=== PATIENT | male | born 1985 ===

== ENCOUNTER → 2017-02-26 10:37 | Day surgery (SDC) | payer OTHER ==
[~2017-02-26 10:37] MED LIST: Buffered Lidocaine 1% SYRIN* 3 ML/SYR SYRINGE INTRADERM ONE; Bupivacaine 0.5% SDV PF* 30 ML VIAL ONE; Chloroprocaine 2%* 20 ML VIAL ONE; Dexamethasone IV* 4 MG/ML 1 ML (4 MG) IV SLOW PU ONE; Dexamethasone IV* 4 MG/ML 1 ML (4 MG) ONE; Famotidine IV* 10 MG/ML 2 ML (20 mg) IV ONE; Famotidine IV* 10 MG/ML 2 ML (20 mg) ONE; Midazolam* 1 MG/ML 2 ML VIAL (2 MG) ONE; Midazolam* 1 MG/ML 5 ML VIAL (5 MG) ONE; Ondansetron INJ* 2 MG/ML VIAL ONE; PROCHLORPERAZINE INJ 5 MG/ML 2 ML VIAL IV PRN; Succinylcholine* 20 MG/ML 10 ML VIAL ONE; ceFAZolin 1 GM in Dextrose (*) 1 GM/50 ML BAG IVPB ONE; ceFAZolin 2 GM PREMIX(*) 2 GM/50 ML BAG IVPB ONE; fentaNYL* 50 MCG/ML 2 ML VIAL (100 MCG VIAL) IV PRN; fentaNYL* 50 MCG/ML 2 ML VIAL (100 MCG VIAL) ONE; oxyCODONE/Acetamin 5/325 MG* TAB ONE
[2017-02-26] MEDS: oxyCODONE/Acetamin 5/325 MG* TAB PO PRN ×2 (14:00→15:57)
[2017-02-26 15:57] VITALS: BP 104/76
--- NOTE | 2017-02-27 09:30 | OP ---
DATE OF OPERATION: 02/26/17 - [facility] DATE OF : 81 SURGEON: John Kramer MD MONEY POSITION OFFICER: BOUBACAR Quinones ANESTHESIOLOGIST: Lianna Mckeon MD ANESTHESIA: Spinal PRE-OP DIAGNOSIS: Right ankle instability. POST-OP DIAGNOSIS: Right ankle instability. OPERATIVE PROCEDURE: Right modified ankle ligament repair. DESCRIPTION OF PROCEDURE: The patient was taken to the operating room, lateral positioning used. We made a longitudinal incision over the distal fibula. The patient was noted to have a very thickened, hypertrophic capsule in this area. We incised directly through it along the anterior border of the fibula and sent some of the hypertrophic synovium for pathology. The joint cartilage looked pristine. Because of the thickened capsule, we elected to do a modified Brostrom. We reflected the periosteum posteriorly and then made a 0.062 C-wire drill holes back to front through the fibula. We scarified the anterior aspect of the fibula with a Rongeur. We then used Hay-Mu sutures of #1 Vicryl to fully capsule up firmly to the anterior fibula. Excellent purchase and capsular advancement was obtained. We then brought the redundant periosteum down over the repair with 2-0 Vicryl. Subcutaneous closure and then ally for the skin with a compression dressing plaster splint. [id number]/[facility] #: [id number] [facility]
== END | disposition home or self-care (01) ==
LOC: OR 10:37
PROVIDERS: ATTEND Orthopaedic Surgery
DX: S93.401A Sprain of unspecified ligament of right ankle, initial encounter (principal); W11.XXXA Fall on and from ladder, initial encounter; Y92.9 Unspecified place or not applicable; Y99.0 Civilian activity done for income or pay
CPT/HCPCS: 88305; A9270-GY; C1776; J0330; J0690; J1100; J2250; J2400; J2405; J3010

== ENCOUNTER 2018-04-03 15:25 | Inpatient (IN) | payer BC, OTHER ==
[2018-04-03] MEDS ORDERED: Morphine VIAL* 4 MG/ML VIAL (1 ml vial) IV ONE ×2 (15:49→17:02)
[2018-04-03] MEDS ORDERED: Metoclopramide IV* 5 MG/ML 2 ML VIAL IV ONE (15:49)
[2018-04-03] MEDS ORDERED: NS 0.9% 1000 ML* 1,000 ML IV ONE (15:50)
[2018-04-03 16:13] LABS: ABS Basophils 0.1 10^3/ul (0-0.2); ABS Eosinophils 0.1 10^3/ul (0-0.6); ABS Lymphocytes 1.7 10^3/ul (1.0-4.8); ABS Monocytes 0.7 10^3/ul (0-0.8); ABS Neutrophils 8.9 10^3/ul (1.5-7.7); ABS Nucleated RBC 0 10^3/ul; Hematocrit 42 % (42-52); Hemoglobin 13.8 g/dl (14.0-18.0); Lymphocyte % 14.5 % (25-47); Mean Corpuscular HGB Conc 33 g/dl (31-36); Mean Corpuscular Hemoglobin 30 pg (27-31); Mean Corpuscular Volume 90 fL (80-94); Mean Platelet Volume 8.5 um3 (7.4-10.4); Nucleated Red Blood Cells % 0.1; Platelet Count 219 10^3/ul (150-450); Red Blood Count 4.62 10^6/ul (4.0-5.4); Red Cell Distribution Width 14 % (10.5-15); White Blood Count 11.5 10^3/ul (3.5-10.8)
[2018-04-03 16:18] LABS: INR 0.98 (0.77-1.02)
[2018-04-03 16:32] LABS: EGFR Non-African American 73.5 (>60)
--- NOTE | 2018-04-03 16:40 | ED ---
Upper Extremity Pain - HPI Summary HPI Summary: Rt hand dominant patient here with left wrist fracture today. He reports he was standing at the top of an 8 foot ladder (he's 6'4") when the ladder gave out and he fell at about 1045 this morning. He recalls all of the events and states he landed primarily on his left hand/wrist area. Scraped the right side of his flank against the ladder and has a abrasion here as well. Denies any head injury, chest or back injury and did not land on his feet or lower extremities - denies back pain, chest pain, SOB, hematuria, incontinence of bowels/bladder. He has a bloody oozing wound over the ventral aspect of his left wrist along with swelling and pain which is 7 out of 10 despite 15 mg of Toradol prior to arrival - he was evaluated at [place] urgent care and splint placed/medicated prior to coming here. He also received a Boostrix vaccine while in [place]. Denies numbness, tingling, weakness of his phalanges. No previous injury here to report. Last drink was soda at about 10:30 this morning. Last meal was a granola bar at 9 AM this morning. Has sleep apnea Had surgery on his RT ankle here at [facility] in 02/2017 w/ Dr. Kramer - no issues with anesthesia No other medical issues to report - History of Current Complaint Chief Complaint: EDExtremityUpper Stated Complaint: WRIST FRACTURE Time Seen by Provider: 04/03/18 15:49 Hx Obtained From: Patient - Allergies/Home Medications Allergies/Adverse Reactions: Allergies Allergy/AdvReac Type Severity Reaction Status Date / Time No Known Allergies Allergy Verified 02/26/17 11:00 PMH/Surg Hx/FS Hx/Imm Hx Previously Healthy: Yes Endocrine/Hematology History: Denies: Hx Anticoagulant Therapy, Hx Blood Disorders, Hx Diabetes, Hx Anemia , Hx Unexplained Bleeding, Autoimmune Disease Cardiovascular History: Denies: Hx Hypertension Respiratory History: Reports: Hx Sleep Apnea Denies: Hx Asthma, Hx Chronic Obstructive Pulmonary Disease (COPD) Musculoskeletal History: Reports: Hx Orthopedic Injury - Rt ankle instability - surgery to repair Sensory History: Denies: Hx Contacts or Glasses, Hx Hearing Aid Opthamlomology History: Denies: Hx Contacts or Glasses - Surgical History Surgery Procedure, Year, and Place: TESTICULAR TORSION REPAIR A CHILD, [facility] Hx Anesthesia Reactions: No - Immunization History Immunizations Up to Date: Yes - recevied Boostrix prior to arrival Infectious Disease History: No Infectious Disease History: Denies: Hx of Known/Suspected MRSA, Traveled Outside the [place] in Last 30 Days - Family History Known Family History: Positive: None - Social History Occupation: Employed Full-time Lives: With Family Alcohol Use: Occasionally Hx Substance Use: No Substance Use Type: Reports: None Hx Tobacco Use: No - not currently Smoking Status (MU): Former Smoker Type: Cigarettes Amount Used/How Often: 1.5 PPD FOR ABOUT 15 YEARS Length of Time of Smoking/Using Tobacco: 15 YEARS Have You Smoked in the Last Year: No Review of Systems Negative: Fatigue Negative: Chest Pain Negative: Shortness Of Breath Gastrointestinal: Negative Negative: Abdominal Pain, Vomiting, Nausea Negative: incontinence Positive: Arthralgia, Myalgia, Decreased ROM, Edema Skin: Other - lac of skin Rt wrist Neurological: Negative Psychological: Normal All Other Systems Reviewed And Are Negative: Yes Physical Exam Triage Information Reviewed: Yes Vital Signs On Initial Exam: Initial Vitals Temp Pulse Resp BP Pulse Ox 97.2 F 77 16 151/89 96 04/03/18 15:28 04/03/18 15:28 04/03/18 15:28 04/03/18 15:28 04/03/18 15:28 Vital Signs Reviewed: Yes Appearance: Positive: Pain Distress, Obese Skin: Positive: Warm, Skin Color Reflects Adequate Perfusion - Ventral radial aspect of left wrist with 3 mm bloody oozing wound - difficult to tell if this was externally inflicted or internal; superficial linear abrasion along right mid axillary region - scabbed, no active bleeding, no ecchymosis, no edema, nontender to palpation Head/Face: Positive: Normal Head/Face Inspection Eyes: Positive: Normal, EOMI, JAZMIN ENT: Positive: Normal ENT inspection, Hearing grossly normal, Pharynx normal Neck: Positive: Supple, Nontender - Full range of motion without pain or restriction Respiratory/Lung Sounds: Positive: Clear to Auscultation, Breath Sounds Present. Negative: Other - Ribs are nontender to palpation patient does not splint with deep breath Cardiovascular: Positive: Normal, Pulses are Symmetrical in both Upper and Lower Extremities Abdomen Description: Positive: Nontender, No Organomegaly, Soft Musculoskeletal: Positive: Strength/ROM Intact - Cervical spine, shoulders, elbows, phalanges of bilateral hands (moves left phalanges well splinted); full range of motion lumbar spine and lower extremities without pain or restriction; patient can bear weight without pain or weakness, Pain @ - Left wrist edematous - guards from movement secondary to pain Neurological: Positive: Normal, Sensory/Motor Intact, Alert, Oriented to Person Place, Time, CN Intact II-III Psychiatric: Positive: Normal Diagnostics - Vital Signs Vital Signs Temp Pulse Resp BP Pulse Ox 04/03/18 15:36 97.4 F 76 20 120/79 96 04/03/18 15:28 97.2 F 77 16 151/89 96 - Laboratory Lab Results: Lab Results 04/03/18 04/03/18 Range/Units 16:00 16:00 WBC 11.5 H (3.5-10.8) 10^3/ul RBC 4.62 (4.0-5.4) 10^6/ul Hgb 13.8 L (14.0-18.0) g/dl Hct 42 (42-52) % MCV 90 (80-94) fL MCH 30 (27-31) pg MCHC 33 (31-36) g/dl RDW 14 (10.5-15) % Plt Count 219 (150-450) 10^3/ul MPV 8.5 (7.4-10.4) um3 Neut % (Auto) 77.5 (38-83) % Lymph % (Auto) 14.5 L (25-47) % [place] % (Auto) 6.4 (0-7) % Eos % (Auto) 1.0 (0-6) % Baso % (Auto) 0.6 (0-2) % Absolute Neuts (auto) 8.9 H (1.5-7.7) 10^3/ul Absolute Lymphs (auto) 1.7 (1.0-4.8) 10^3/ul Absolute Monos (auto) 0.7 (0-0.8) 10^3/ul Absolute Eos (auto) 0.1 (0-0.6) 10^3/ul Absolute Basos (auto) 0.1 (0-0.2) 10^3/ul Absolute Nucleated RBC 0 10^3/ul Nucleated RBC % 0.1 INR (Anticoag Therapy) 0.98 (0.77-1.02) Result Diagrams: 04/03/18 16:00 04/03/18 16:00 Lab Statement: Any lab studies that have been ordered have been reviewed, and results considered in the medical decision making process. Course/Dx - Course Course Of Treatment: Patient arrives with XR images from [facility] urgent care on [address] in [facility] where he was seen prior to arrival here today. Images are of the left wrist and reveal (wet read) comminuted and slightly displaced distal radial fracture as well as fx of styloid process of ulna. He is neurovascularly intact however with possible open fracture site, Dr. Hong was called for consult. An IV was placed for pain control and patient reports his pain a 7 out of 10 reduced to 5 out of 10 with IV morphine - he feels this is a comfortable level of pain for him at this time. Assessed patient for additional injuries from fall and does not seem to be suspicious for any at this point in time, inlcuding but not limited to Rt flank hematoma, rib fx, head /neck injury. IV fluids were initiated as patient has not had anything to eat or drink since 10:30 this morning and was a little shaky upon arrival however his vitals are stable. Ancef also ordered as well as ecg, cxr and MRSA swab for pre-po prep. Dr. Trevino will admit the pt for surgery tomorrow. - Diagnoses Provider Diagnoses: Open fracture of left wrist Discharge - Sign-Out/Discharge Documenting (check all that apply): Discharge/Admit/Transfer - Discharge Plan Condition: Stable Disposition: ADMITTED TO [facility] - Billing Disposition and Condition Condition: STABLE Disposition: HOSP-[facility]
[2018-04-03] MEDS ORDERED: ceFAZolin 1 GM VIAL(*) 2 GM in NS 0.9% 100 ML* 100 ML IVPB ONE (17:01)
--- NOTE | 2018-04-03 17:51 | HP ---
H&P (Free Text) History and Physical: I will dictate an H&P in a few minutes. Synopsis: Assessment: L open distal radius fracture, comminuted intra-articular. Plan: - Admit for IV antibiotics and for operation tomorrow morning - NPO p midnight - EKG, CXR, labs for pre-op optimization/clearance - Cleaned puncture wound with Betadine. Placed Betadine-soaked 4x4s then a sugar-tong splint with plaster and a sling - Ancef 1gm IV q 8 hrs - To OR tomorrow for open, I&D, ORIF with volar plate (likely) versus ex-fix ( unlikely) - CT scan STAT L wrist to evaluate distal radius fracture fragments for pre-op planning and assess SL interval
--- NOTE | 2018-04-03 17:53 | RAD ---
Indication: Preop, sleep apnea. Single frontal view of the chest performed at 1729 hours was reviewed. No prior study is available for comparison. No mediastinal shift is noted. Heart is of normal size and configuration. Lung carrillo appear clear. IMPRESSION: NO ACTIVE CARDIOPULMONARY DISEASE IS NOTED.
[2018-04-03] MEDS ORDERED: Buffered Lidocaine 0.9% SYRIN* 5 ML/SYR SYRINGE INTRADERM ONE (18:11)
[2018-04-03] MEDS ORDERED: ceFAZolin 2 GM PREMIX (*) 2 GM/50 ML BAG IVPB ONE (18:30)
--- NOTE | 2018-04-03 18:52 | RAD ---
Indication: Left wrist injury. CT of the left wrist was obtained in the axial position. Coronal and sagittal reconstructed images were obtained. There is comminuted fracture of the distal radius with overriding of the fracture fragment. Intra-articular extension of the fracture line is noted. There is dorsal angulation of the distal fracture fragment. There is fracture of the base of the ulnar styloid process however no discrete displaced fragment is noted. The navicular appears intact without fracture. There may be some widening of the scapholunate interval. The lunate is intact. The remainder of the carpal bones are otherwise unremarkable. IMPRESSION: Comminuted fracture of the distal radius with overriding of the fracture fragments with extension into the intra-articular surface. There is a fracture through the base of the ulnar styloid process. Widening of the scapholunate interval.
[2018-04-03] MEDS ORDERED: diPHENhydraMINE IV* 50 MG/ML 1 ml VIAL (BENADRYL) IV PRN (19:18)
[2018-04-03] MEDS ORDERED: Ondansetron INJ* 2 MG/ML VIAL IV PRN (19:18)
[2018-04-03] MEDS ORDERED: NS 0.9% 1000 ML* 1,000 ML IV SCH (19:30)
[2018-04-03] MEDS: oxyCODONE/Acetamin 5/325 MG* TAB PO PRN (20:21)
--- NOTE | 2018-04-03 21:19 | HP ---
HISTORY AND PHYSICAL: DATE OF ADMISSION: 04/03/18 REASON FOR ADMISSION: Open left distal radius fracture. 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 It was noted in the [facility] and the [facility] Emergency Department that the patient had a loss of integrity of the skin about the volar wri st inconsistent with a puncture wound. The patient states that he was working, 6 feet up a ladder this morning. Specifically, his feet were at the level of 6 feet, so his hands may have been at 10 feet. The ladder collapsed and the patient fell, landing on his left wrist and right side, flank. The patient had pain, swelling and some defor mity of the left wrist. The patient did not hit his head. He did not lose consciousness. He had a little bit of discomfort about the right side of his torso, but no other pain present. The patient went to an urgent care in [place]. X-rays were obtained of the left wrist. The patient w as diagnosed with fractures of the distal radius and distal ulna. The distal radius fracture was not ed to be comminuted. The patient's mother is a PACU nurse at [facility]. The patient preferred treatment at [facility]. Staff at the [facility] contacted me by telephone, as I am on-call for [facility]. They told me about the fractur e, shared x-rays, and told me about the open nature of the fracture. I recommended transfer for admi ssion with IV antibiotics and likely surgical management. The patient was brought to the [facility] Emergen cy Department. The patient had been placed in a one-step sugar-tong splint at the [facility]. The patient acknowledges left wrist pain now. No fever, sweats, or chills. PAST MEDICAL HISTORY: None. PAST SURGICAL HISTORY: Right ankle lateral reconstruction surgery by Dr. Kramer in 2017, testicular torsion surgery in the distant past, removal of the patient's second thumb, right hand in the distant past. MEDICATIONS: None. ALLERGIES: No known drug allergies. SOCIAL HISTORY: The patient currently vapes. The patient has smoked cigarettes in the past, for 15 years, up to 1-pack per day. No smoking of cigarettes currently. The patient lives with his family 4 5 to 60 [address] from [place]. His mother, Zach, works in the PACU, recovery room, surgical at [facility]. 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 REVIEW OF SYSTEMS: Currently no headache, chest pain, shortness of breath, heart palpitations. The patient acknowledges a little bit of discomfort about the right side and pain about the left wrist. No numbness or tingling of left upper extremities. No pain in the left shoulder or elbow. PHYSICAL EXAMINATION GENERAL: No acute distress. Alert and oriented, appropriate mood and affect, appropriate dress and hygiene for doing some manual labor today. VITAL SIGNS: Temperature 97.4 degrees Fahrenheit at 3:36 p.m. Also, at that time, the patient had p ulse 76, blood pressure 120/79, respiratory rate 20, and O2 saturation 96% on room air. HEENT: Normocephalic, atraumatic. NECK: No tenderness with palpation of the neck, midline and paraspinal. No pain with passive range of motion of the left shoulder or elbow. EXTREMITIES: The patent has tenderness to palpation and mild soft tissue swelling about the left wri st. Tenderness to palpation at the distal radius and ulna. Neurovascularly intact distally. The pat ient has some abrasion, linear, partial thickness skin about the lateral aspect, right of the torso, mid sagittal line more abdominal than at the level of the chest. No tenderness to palpation of the h eels or pain with passive range of motion at the ankles. Examination of the patient's left wrist rev ealed a very small defect in skin, slightly jagged in shape. In length, it appeared 5 mm or less. I t was already filled over and not draining. It had clotted off with blood. Palpation about it faile d to express any fluid. (By report, there was drainage when at urgent care, consistent with a punctu re wound from the inside out). LABORATORY DATA: White blood cell count 11.5. INR 0.98. Chemistries demonstrate glucose 104. IMAGING: X-ray views of the left wrist obtained at the [facility] and incorporated into our system reveal a left distal radius fracture, comminuted, displaced. There is a transverse fracture l ine extraarticular. It appears there is also a possible fracture line in the coronal plane. There i s a fracture fragment on the ulnar most aspect of the distal radius. Predominant displacement is matthew regla of everything distal to the transverse fracture line. There is a nondisplaced fracture of the ulnar styloid process. There is some question of some mild diastasis at the scapholunate interval. ASSESSMENT: Left open distal radius and ulna fractures, displaced, intra- articular. PLAN: 1. I examined the patient at several minutes after 5 p.m. I considered surgery this evening; lebron sanabria, this would mean an approximate start time of 7 p.m. I thought that it would better serve the kathy ent to have a fresh operating room and operating room staff first thing in the morning. Therefore, I decided 8:30 a.m. tomorrow morning for surgery. This is still within 24 hours of the patient's open fracture. He has a grade 1 open fracture with only several millimeters, 1 cm or less clearly less t mcfarland 1 cm in size without gross contamination. More recent studies have shown that the timing of IV a ntibiotics are more important than the exact timing of surgery to minimize the risk of infection. 2. The patient was started on Ancef 1 g IV q.8 hours. He will also be swabbed for MRSA. If he is p ositive, we will cover him by changing the antibiotics, IV. 3. I cleaned the patient's wound with Betadine. I then placed a Betadine soaked 4x4 and then severa l dry 4x4s over the patient's wound. I then placed a short arm splint specifically a sugar-tong fore arm splint with plaster. I next provided him with a sling. 4. The patient will be admitted. He will be admitted to [place]. The reason for admission will be IV an tibiotics, preoperative optimization, CT scan, pain control and operation tomorrow morning. 5. N.p.o. past midnight. 6. The patient will have an EKG and chest x-ray for preoperative optimization and clearance. 7. The patient will have a CT scan stat of the left wrist to evaluate the different fracture fragmen ts of the distal radius. It makes sense to get this as the patient is admitted. This will help with preoperative planning. The CT scan will also provide some information about the scapholunate injury , if any of that ligament. 8. To the operating room tomorrow morning for open incision, irrigation and debridement at the open puncture site, open reduction internal fixation versus external fixation closed reduction of the kathy ent's distal radius fracture. [id number]/[facility] #: [id number]
[2018-04-03] MEDS: Heparin VIAL(*) 5000 UNITS/ML VIAL (FIVE THOUSAND) SUBCUT SCH (22:38)
[2018-04-04] MEDS: Heparin VIAL(*) 5000 UNITS/ML VIAL (FIVE THOUSAND) SUBCUT SCH ×2 (05:46→15:22)
[2018-04-04] MEDS ORDERED: Famotidine IV* 10 MG/ML 2 ML (20 mg) IV ONE (07:00)
[2018-04-04] MEDS ORDERED: Dexamethasone IV* 4 MG/ML 1 ML (4 MG) IV SLOW PU ONE (07:00)
[2018-04-04] MEDS: Morphine VIAL* 4 MG/ML VIAL (1 ml vial) IV PRN (07:16)
[2018-04-04] MEDS ORDERED: fentaNYL* 50 MCG/ML 5 ML VIAL (250 MCG VIAL) ONE (08:22)
[2018-04-04] MEDS ORDERED: Midazolam* 1 MG/ML 5 ML VIAL (5 MG) ONE (08:22)
[2018-04-04] MEDS ORDERED: ceFAZolin 2 GM PREMIX (*) 2 GM/50 ML BAG IVPB ONE (08:22)
[2018-04-04] MEDS ORDERED: Propofol* 10 MG/ML 20 ML BTL IV PUSH ONE (08:23)
[2018-04-04] MEDS ORDERED: Succinylcholine* 20 MG/ML 10 ML VIAL ONE (08:23)
[2018-04-04] MEDS ORDERED: Lidocaine 2% PF * 5 ML VIAL ONE (08:23)
[2018-04-04] MEDS ORDERED: ROPIVACAINE 5 MG/ML 30 ML BTL (0.5%) ONE (08:29)
[2018-04-04] MEDS ORDERED: Phenylephrine INJ* 10 MG/ML 1 ML VIAL (10 MG) ONE (09:37)
[2018-04-04] MEDS ORDERED: EPHEDrine (Pressors)* 50 MG/ML VIAL ONE (09:46)
[2018-04-04] MEDS ORDERED: DiMENhydriNATE IV* 50 MG/ML VIAL IV PUSH PRN (10:44)
[2018-04-04] MEDS ORDERED: HYDROcodone/ACETAMIN 5-325 MG* 1 TAB PO PRN (10:44)
[2018-04-04] MEDS ORDERED: Naloxone* 0.4 MG/ML 1 ML VIAL IV PRN (10:44)
[2018-04-04] MEDS ORDERED: oxyCODONE/Acetamin 5/325 MG* TAB PO PRN (10:44)
[2018-04-04] MEDS ORDERED: fentaNYL* 50 MCG/ML 2 ML VIAL (100 MCG VIAL) IV PRN (10:44)
[2018-04-04] MEDS ORDERED: Magnesium Hydroxide LIQ* 30 ML UDC PO PRN (13:32)
[2018-04-04] MEDS ORDERED: Morphine VIAL* 4 MG/ML VIAL (1 ml vial) IV PRN (13:32)
[2018-04-04] MEDS: ceFAZolin 1 GM in Dextrose (*) 1 GM/50 ML BAG IVPB SCH (17:36)
[2018-04-04] MEDS: oxyCODONE/Acetamin 5/325 MG* TAB PO PRN (21:33)
[2018-04-04] MEDS: Magnesium Hydroxide LIQ* 30 ML UDC PO SCH (21:33)
[2018-04-04] MEDS: Docusate CAP* 100 MG PO SCH (21:33)
--- NOTE | 2018-04-04 22:11 | OP ---
DATE OF OPERATION: 04/04/18 - ROOM #333 DATE OF : 81 SURGEON: Jakob Trevino MD CIRCUIT BOARD DRAFTER: BOUBACAR Thorpe. A physician administrative assistant data entry was required for the length of the procedure for positioning, retraction, and assistance with closure. ANESTHESIOLOGIST: Lianna Mckeon MD ANESTHESIA: General anesthesia, supraclavicular regional nerve block. PRE-OP DIAGNOSES: 1. Left open distal radius fracture, comminuted, displaced, intraarticular, multiple fragments, more than 3. 2. Left ulnar styloid process fracture, nondisplaced. POST-OP DIAGNOSES: 1. Left open distal radius fracture, comminuted, displaced, intraarticular, multiple fragments, more than 3. 2. Left ulnar styloid process fracture, nondisplaced. OPERATIVE PROCEDURE: 1. Open reduction and internal fixation, left distal radius fracture, intraarticular, displaced, more than 3 fracture fragments. 2. Open debridement, skin to bone, open fracture. IV FLUIDS: 2000 cc crystalloid. ANTIBIOTICS: 2 g Ancef IV. SPECIMEN: None. IMPLANTS: Synthes 3-hole volar distal radius locking plate, polyaxial. Multiple 2.4 mm screws. Two 2.4 mm nonlocking screws and one 2.7 mm nonlocking screw placed through the 3 proximal holes in the plate. The distal 2 rows of screws were all 2.4 mm. One screw was nonlocking, the rest were locking. IRRIGATION OF WOUND: 1500 cc crystalloid. TOURNIQUET TIME: 120 minutes. IQFJ-OV-GHMM TIME: 130 minutes. RADIATION: Mini C-arm was used. Total exposure 2 minutes and 38 seconds. There was 70.91 milligray of exposure. COMPLICATIONS: None. ESTIMATED BLOOD LOSS: Minimal. 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 The patient's feet were at 6 feet high, so his hands may have fallen from much higher, 8 to 10 feet. The patient was first taken to an Urgent Care in [place], [place] and diagnosed with a distal radius fracture, displaced, likely open. Urgent Care staff called me. The patient preferred care at [facility] and the patient was transferred to [facility]. Evaluation in the emergency department by me noted a small puncture wound about the volar ulnar wrist, clearly consistent with an inside-out fracture. This had already sealed over with some blood clot and stopped draining. It was only proximally 5 mm or less long. The patient was admitted for IV antibiotics and scheduled for surgery the following morning. I also in the emergency department put on a new more comfortable plaster sugar-tong splint. The patient had labs, chest x-ray, and EKG. As the patient was admitted, and it looked like there was much comminution of the distal radius fracture, I decided to get a CT scan to help with preoperative planning. I also wanted to visualize better the scapholunate interval, which appeared widened by x-ray. The patient was made n.p.o. after midnight. I placed a Betadine soaked gauze over the opened skin site prior to the placement of a plaster splint. Discussed risks and potential complications of surgery including bleeding, infection, nerve or blood vessel injury, wrist pain, stiffness, osteoarthritis. Discussed somewhat postoperative rehab and return to work timing. Anesthesia saw the patient and was familiar with him. They were certainly concerned about the sleep apnea the patient's described at home with the patient needing to fall asleep in a seated position. The patient had surgery by Dr. Kramer in 2017 for an ankle. DESCRIPTION OF PROCEDURE: Preoperative written consent was obtained. Operative extremity was marked in preoperative holding. The patient was taken back to the operating room and placed supine on operating room table. Dr. Mckeon performed a supraclavicular regional nerve block. He then performed general anesthesia. Hand table was applied to the operating room table. Tourniquet was placed about the left upper arm. The left upper extremity was prepped first with chlorhexidine and then with Betadine. Draping was performed. Surgical time-out was performed. Esmarch applied and tourniquet was elevated to 250 mmHg. The poke hole about the more ulnar aspect of the volar wrist was identified. This was extended 5 to 10 mm proximal and distal longitudinally. A spreading dissection with scissors to dissect through subcutaneous tissue deep into muscle. Much irrigation using a bulb tip syringe was infused into that area of the open laceration. With the mini C-arm now prepped, I brought the mini C-arm in. I performed a closed reduction of distal radius. This showed partial, but not complete reduction of fracture fragments. I next performed a 7 to 8 cm longitudinal incision of the skin overlying the FCR tendon. I exchanged knives and continued dissection through superficial subcutaneous tissue. I then used dissection scissors to spread down to the FCR. I cut the FCR tendon sheath, retracted the tendon and then cut the subsheath. I retracted the FPL tendon ulnarly. I then identified the patient' s pronator quadratus, which was quite robust. I incised it off the radial border of the distal radius with a 15 blade. I then peeled it back ulnarly using a Bovie on bone. No significant bleeding. It should be noted that earlier for hemostasis, I used the bipolar electrocautery to cauterize several very small transverse oriented veins and subcutaneous tissue. I peeled off pronator quadratus both proximal and distal to the main transverse fracture line. I identified multiple fracture lines. There were at least 4 to 5 fracture fragments with some fracture lines intraarticular. I irrigated and debrided minimally the fracture site to remove any fibrous tissue from it. I used a Kinder to reduce bone fragments as well as my own hands to manually reduce bony fragments. I obtained mini C-arm imaging to confirm adequacy of reduction. I then placed 2 K-wires for provisional fixation from the radial styloid across the fracture site. This obtained pretty good, although not yet perfect reduction of all fracture fragments. I next chose a plate width. I chose a wide plate, 3-hole. I placed this over the distal radius. I placed K-wires to keep it in place proximally and distally 1 K- wire each. Liking the position of my plate according to mini C- arm imaging, I next placed a nonlocking 2.4 mm screw through the oval hole proximally. I adjusted the plate's position proximal to distal slightly. I then placed a nonlocking screw into the distal row of the plate. Recognizing that my reduction was not yet perfect, I took my 2 K-wires out of the radial styloid and affected more of a reduction, specifically translating the most distal fracture fragments more volarly at the transverse fracture line. With the bone better reduced, I next placed 2 additional locking screws distally through the plate. I obtained x-ray views that showed excellent reduction. Visually my reduction was perfect. I next filled the plate proximally with nonlocking screws and distally with locking screws. I endeavored to angle my ulnar most screws in an ulnar direction to capture an ulnar fracture fragment. None of the screws seemed to penetrate even subchondral bone much less the joint. They all seemed adequately proximal. I obtained a variety of x-ray views, all showed excellent reduction and excellent position of hardware. I irrigated the wound once again. I closed the pronator quadratus to the FCR subsheath with 3 or 4 simple stitches using Vicryl 2-0 suture. Irrigation. I closed the subcutaneous tissue with buried simple stitches using Vicryl 3-0 suture. We closed the skin with a running stitch using nylon 4-0 suture. We loosely closed the laceration site incision with 3 simple stitches using nylon 4-0 suture. Xeroform was placed over the main longitudinal skin incision, 4x4's, sterile Webril. Tourniquet was dropped. A volar plaster splint was placed, overwrapped with Gil bandage. The patient's left arm was placed in a sling. I took several mini-C arm images of the contralateral right wrist for comparison of scapholunate intervals. The left scapholunate interval was slightly wider than the right. This may or may not represent a concomitant SL ligament injury. According to a 2018 paper by Allan, possible SL ligament injury does not need to be surgically addressed in the context of a widened interval with a distal radius. The patient was extubated and transferred to the PACU. DISPOSITION: Initial plan was for the patient to be discharged home with Percocet for pain control, aspirin for DVT prophylaxis and Keflex for infection prophylaxis. However, given the severity of the patient's sleep apnea, appreciated by Anesthesia both intraoperatively and in the PACU and in discussions with family , it was decided that it was safer for the patient to be admitted postoperatively for medical management of sleep apnea. While the patient is here, we will continue him on IV antibiotics Ancef 1 g q.8 hours. The patient will follow up with me in clinic in 7 to 10 days postoperative. We will then get him to a physical therapist who will start him on range of motion work. We will mobilize him. [id number]/[facility] #: [id number] PAOLA
[2018-04-05] MEDS: ceFAZolin 1 GM in Dextrose (*) 1 GM/50 ML BAG IVPB SCH ×2 (01:51→09:25)
[2018-04-05] MEDS: oxyCODONE/Acetamin 5/325 MG* TAB PO PRN ×2 (01:57→08:04)
[2018-04-05] MEDS: Morphine VIAL* 4 MG/ML VIAL (1 ml vial) IV PRN (04:12)
[2018-04-05 05:27] LABS: Hematocrit 36 % (42-52); Hemoglobin 11.9 g/dl (14.0-18.0)
[2018-04-05 05:56] LABS: EGFR Non-African American 86.5 (>60)
--- NOTE | 2018-04-05 07:27 | PN ---
Progress Note - Progress Note Date of Service: 04/05/18 SOAP: Subjective: 32 y/o male s/p open ORIF of open distal radius fx 04/04/2018. VSS, afebrile overnight. Objective: General- Well appearing, NAD, resting in bed comfortably, MSK- SPlint intact, no driange noted, full ROM of fingers, thumb without difficulty, SITLT. cap refill < 2 seconds, no induration, erythema around splint. Vital Signs Temp 98.1 F 04/05/18 03:52 Pulse 70 04/05/18 03:52 Resp 14 04/05/18 05:58 BP 125/71 04/05/18 03:52 Pulse Ox 99 04/05/18 05:58 Intake & Output 04/04/18 04/05/18 04/05/18 18:59 06:59 18:59 Intake Total 3863 1471 Output Total 1250 250 Balance 2613 1221 Intake: IV Fluids 3143 1001 LR 2200 NS (0.9%) 893 1001 NS 50ML, Cefazolin 2G 50 IVPB 110 ABX - CEFAZOLIN 110 Oral 720 360 Output: Urine 1200 250 Estimated Blood Loss 50 Assessment: Stable 32 y/o male s/p open ORIF of open distal radius fx 04/04/2018. Patient feeling well, pain controlled with PO Percocet. O2 monitoring overnight. VSS afebrile. Eager for D/C Plan: - Follow up with Dr. Trevino within 7 days for wound check, splint change - ABX x 10 days - Percocet for pain control - post-op abx- cefazolin, running. D/C after ABX completed - D/C to [facility], sleep study referral placed. - Reviewed splint precautions Aspirin (Aspirin Tab*) 325 mg PO DAILY FAY Diphenhydramine HCl (Benadryl Iv*) 25 mg IV Q6H PRN PRN Reason: PRURITIS Docusate Sodium (Colace Cap*) 100 mg PO BID [facility] Last Admin: 04/04/18 21:33 Dose: 100 mg Cefazolin Sodium/Dextrose (Kefzol 1 Gm In Dextrose Duplex (*)) 1 gm in 50 mls @ 200 mls/hr IVPB Q8H [facility] Stop: 04/05/18 09:44 Last Admin: 04/05/18 01:51 Dose: 200 mls/hr Lactated Ringer's (Lactated Ringers 1000 Ml Bag*) 1,000 mls @ 100 mls/hr IV PER RATE [facility] Last Admin: 04/04/18 15:05 Dose: 100 mls/hr Magnesium Hydroxide (Milk Of Magnesia Liq*) 30 ml PO BID [facility] Last Admin: 04/04/18 21:33 Dose: 30 ml Magnesium Hydroxide (Milk Of Magnesia Liq*) 30 ml PO Q6H PRN PRN Reason: constipation Morphine Sulfate (Morphine Vial*) 2 mg IV Q2H PRN PRN Reason: PAIN - SEVERE Last Admin: 04/05/18 04:12 Dose: 2 mg Morphine Sulfate (Morphine Vial*) 2 mg IV Q2H PRN PRN Reason: PAIN - BREAKTHROUGH Ondansetron HCl (Zofran Inj*) 4 mg IV Q6H PRN PRN Reason: NAUSEA Oxycodone/Acetaminophen (Percocet 5/325 Tab*) 1 tab PO Q3H PRN PRN Reason: PAIN - MODERATE Last Admin: 04/04/18 21:33 Dose: 1 tab Oxycodone/Acetaminophen (Percocet 5/325 Tab*) 2 tab PO Q4H PRN PRN Reason: PAIN Last Admin: 04/05/18 01:57 Dose: 2 tab
[2018-04-05 07:56] VITALS: BP 111/54
[2018-04-05] MEDS: Docusate CAP* 100 MG PO SCH (08:05)
[2018-04-05] MEDS: Magnesium Hydroxide LIQ* 30 ML UDC PO SCH (08:05)
[2018-04-05] MEDS ORDERED: Aspirin TAB* 325 MG PO SCH (09:00)
--- NOTE | 2018-04-08 08:12 | RAD ---
INDICATION: Left forearm ORIF, fall, left wrist fracture COMPARISONS: CT dated April 03, 2018 TECHNIQUE: Fluoroscopy was provided for a surgical procedure. Total fluoroscopy time is: 3 minutes, 2 seconds. Spot images are submitted for review on April 08, 2015 FINDINGS: Spot images demonstrate internal fixation of the distal radius. IMPRESSION: FLUOROSCOPY WAS PROVIDED FOR A SURGICAL PROCEDURE CPT II Codes: G9500
--- NOTE | 2018-04-13 22:03 | DS ---
DISCHARGE SUMMARY: DATE OF ADMISSION: 04/03/18 DATE OF DISCHARGE: PROVIDER: Dr. Trevino.* (DICTATED BY BOUBACAR GAMING) CHIEF COMPLAINT: Left open distal radius fracture with left ulnar styloid process fracture. DISCHARGE DIAGNOSES: Status post open reduction and internal fixation of left distal radius fracture, intraarticular, and displaced with open debridement of skin to bone. PROCEDURE: ORIF, left distal radius fracture with open debridement, 04/04/18. CONSULTATIONS: 1. Physical Therapy. 2. Occupational Therapy. BRIEF HISTORY: The patient is a 32-year-old gentleman, right hand dominant, who was working on 04/03/18, when he fell on an outstretched hand with immediate pain. He was taken to the ER, found to have an open distal radius fracture with ulnar styloid process fracture. HOSPITAL COURSE: Mr. Kong was admitted to [facility] on 04/03/18 and underwent a subsequent left open distal radius fracture ORIF, intraarticular , displaced, with open debridement skin to bone on 04/04/18. Postoperatively, he recovered on the short-stay surgical unit. On postoperative day 1, the patient had completed IV antibiotics and was transitioned to p.o. antibiotics. His pain was controlled with p.o. Percocet. His splint was in place with no signs of drainage noted. He had no numbness or tingling in his fingertip. He was deemed orthopedically and medically stable for discharge to home. PHYSICAL EXAMINATION: General: Well appearing, in no acute distress. Alert and oriented. Appears stated age. Vital Signs: Temperature 98.1, pulse 70, respirations 14, blood pressure 125/71, pulse oxygenation 99%. The splint was intact over his wrist with no drainage noted. Full range of motion of fingers and thumb without difficulties. Sensation is intact to light touch. Cap refill less than 2 seconds with no induration or erythema noted above or below the splint. LABORATORY DATA: On date of discharge, H and H of 11.9 and 36. DISCHARGE MEDICATIONS: 1. Cephalexin 500 mg t.i.d. x10 days. 2. Colace 100 mg p.o. b.i.d. p.r.n. for constipation. 3. Percocet 5/325 one to two tablets every 4 to 6 hours as needed for pain. 4. Aspirin 325 mg p.o. daily. CONDITION ON DISCHARGE: Stable. DISCHARGE INSTRUCTIONS: Mr. Kong is a pleasant 32-year-old gentleman, status post ORIF of the distal radius fracture with ulnar styloid fracture. He will continue on p.o. Keflex for his open fracture. He will also take Percocet as needed for pain control and Colace as needed to prevent constipation. He will follow up with Dr. Trevino in approximately 7 days for wound check and splint change. He was told to keep his splint dry and be nonweightbearing on his left arm. He is to call the office if he develops any redness, increased swelling, numbness, or tingling to the fingers. The patient was noted postoperatively to have some apneic episodes which continued overnight. A referral was sent in for a sleep study for the patient; however, he was also advised to get a PCP as he does not have one. The patient had no other questions or concerns, but will call us if any do arise. BOUBACAR GAMING [id number]/[facility] #: [id number] PAOLA
== END 2018-04-05 10:35 | disposition home or self-care (01) | DRG 512 ==
LOC: ED 15:25 → SSU 19:18
PROVIDERS: ADMIT Orthopaedic Surgery; ATTEND Orthopaedic Surgery
PROC: 5A09357 Assistance with Respiratory Ventilation, Less than 24 Consecutive Hours, Continuous Positive Airway Pressure (ICD-10-PCS; 2018-04-04)
PROC: 0PSJ04Z Reposition Left Radius with Internal Fixation Device, Open Approach (ICD-10-PCS; principal; 2018-04-04 08:33)
DX: S52.572B Other intraarticular fracture of lower end of left radius, initial encounter for open fracture type I or II (principal); S52.615A Nondisplaced fracture of left ulna styloid process, initial encounter for closed fracture; G47.30 Sleep apnea, unspecified; S30.811A Abrasion of abdominal wall, initial encounter; W11.XXXA Fall on and from ladder, initial encounter; Z87.891 Personal history of nicotine dependence; Z89.011 Acquired absence of right thumb; Y92.89 Other specified places as the place of occurrence of the external cause
CPT/HCPCS: 36415; 71045; 76000; 80048; 80053; 85014; 85018; 85025; 85610; 87641; 93005; 94660; 99283; A9270-GY; C1713; C1776; G8987-GO-CI; G8988-GO-CI; G8989-GO-CI; J0330; J0690; J1100; J1644; J2250; J2270; J2405; J2704; J2765; J2795; J3010